=== PATIENT | female | born 1970 | race Caucasian/White ===

== ENCOUNTER 2016-07-19 18:51 | Emergency (ER) | payer OTHER ==
[~2016-07-19] VITALS: Ht 160 cm; Wt 164.6 kg
[~2016-07-19 18:51] MED LIST: CALC-721 PO; FEXO-43 PO; FLUT16SP2 NS; LEVO1TAB20 PO; LISI-571 PO; MULT-36 PO; NPR500T PO; OXYM30SP NS
[2016-07-19 18:53] VITALS: BP 149/94; PULSE 58; RESP 20; O2SAT 98
--- NOTE | 2016-07-19 19:57 | ED.REPORT ---
HPI-Back Pain 40 and Over Date of Service Jul 19, 2016 ED Provider: Cam Gruber MD A 46 year old female with a medical history including hypertension, allergic rhinitis, and abdominal hernia s/p multiple repair surgeries presents to the ED with right-sided back pain onset suddenly at 1000 this morning, while making waffles. The pain is "stabbing" in nature, localized just inferior to her rib cage, and exacerbated with movement and palpation. Associated symptoms include SOB and pleuritic pain. The patient denies fever, chills, cough, numbness, tingling, weakness, incontinence, or other symptoms. She has been taking daily estradiol since her hysterectomy more than a year ago. The patient denies recent prolonged inactivity or recent surgeries. She was seen by her PCP four days ago with left-sided facial pain and was placed on amoxicillin for a sinus infection, with mild relief. Nursing Notes Stated Complaint: SEVERE BACK SPASM INSIDE RT RIBS Chief Complaint: Back Pain or Injury Nursing Notes Reviewed: Yes Allergies: Coded Allergies: nitrofurantoin (Unverified Allergy, Severe, HIVES, 08/31/14) Scheduled Calcium Carbonate/Vitamin D3 (Calcium 500 + D Tablet) 1 Each Tablet 1 EACH PO DAILY Fexofenadine (Aller-Fex) 180 Mg Tablet 180 MG PO DAILY Fluticasone Propionate (Flonase Nasal) 16 Gm Edmond.susp 1 SPRAY NS DAILY Levonorgestrel/Ethinyl Estradiol (Sronyx) 1 Each Tablet 1 EACH PO DAILY Lisinopril (Lisinopril) 5 Mg Tablet 5 MG PO DAILY Multivitamin (Daily Multiple Vitamin) 1 Each Tablet 1 EACH PO DAILY Oxymetazoline HCl (Afrin) 30 Ml Edmond 1-2 SPRAY NS BID Maxium 3 day use. Scheduled PRN Cyclobenzaprine (Cyclobenzaprine) 5 Mg Tablet 5 MG PO HS PRN PRN Spasm Naproxen (Naproxen) 500 Mg Tab 500-1,000 MG PO BID PRN PRN For Pain General Time Seen by MD: 19:47 Chief Complaint Back pain Hx Obtained From: Patient Arrived By: Walk-in Sudden in Onset?: Yes Onset Occurred: 9 - 12 hours ago Symptom Duration: Since onset Caused by: Spontaneous/no mechanism Location: : Perispinal thoracic Quality: Painful, Stabbing Severity: Current: Moderate Severity: Maximum: Moderate Pertinent Negative: Relieved by nothing Recent Healthcare: Recent doctor visit Past Medical History Past Medical History Hypertension Abdominal hernia s/p multiple surgeries Tinea corporis Depression Allergic rhinitis Past Surgical History Multiple hernia surgeries Reports: , Hysterectomy Smoking History Never Smoker Social History Alcohol Use: "Social" Drug Use: Denies drug use Other Social History: Good social support, Occupation , lives with and 2 kids Ambulatory Status Independent Review of Systems Review of Systems Note: - Tingling Constitutional: Denies: Chills, Fever Respiratory: Reports: Pleuritic pain, Shortness of breath, Denies: Non-productive cough Female: Denies: Incontinence Musculoskeletal: Reports: Back pain (Right-sided) Neurologic: Denies: Bladder dysfunction, Bowel dysfunction, Numbness, Weakness Complete sys rev & neg: except as marked. Physical Exam Initial Vital Signs Vital Signs (First) Date Time Temp Pulse Resp B/P Pulse Ox O2 Delivery O2 Flow Rate FiO2 07/19/16 18:53 36.4 58 20 149/94 98 Room Air Initial VS: Reviewed Head / Eyes: Atraumatic, Normocephalic ENT: Conjunctiva normal, No scleral icterus Skin: Warm, Dry, No cyanosis Psychiatric: Mood/affect normal, Behavior normal, Normal thought content General/Constitutional: Awake, Alert Respiratory / Chest: Breath sounds NL, Breath sounds = bilat, No respiratory distress No anterior chest wall tenderness Cardiovascular: Heart rate NL, Regular rhythm, Heart sounds NL, No gallop, No murmurs, No rubs, Peripheral circulation NL (Good distal pulses) Abdomen: Soft, Non-tender, No distention Back: No midline vertebral tend Tenderness about right inferior and lateral chest wall without rash Neurologic: Oriented X3, Speech NL Lower Extremity / Pelvis / MS: No swelling, Non-tender Interpretation & Diagnostics Lab Results Interpretation Result Diagram: 07/19/16213907/19/162139 Test 07/19/16 19:52 07/19/16 19:56 07/19/16 21:40 Hold Urine Received (Received) Urine Color Yellow (YELLOW) Urine Appearance Clear (CLEAR,HAZY) Urine pH 5.5 (5.0-8.0) Urine Specific Cornell 1.030 (1.003-1.035) Urine Protein Negativemg/dL (NEG,TRACE) Urine Glucose (UA) Negativemg/dL (NEGATIVE) Urine Ketones Negativemg/dL (NEGATIVE) Urine Occult Blood Negative (NEGATIVE) Urine Nitrite Negative (NEGATIVE) Urine Bilirubin Negative (NEGATIVE) Urine Urobilinogen Normalmg/dL (NORMAL) Urine Leukocyte Esterase Negative (NEGATIVE) Urine RBC 0-2/hpf (0-2) Urine WBC 0-5/hpf (0-5) Urine Epithelial Cells Few/hpf (NONE-MOD) Urine Crystals None seen (NONE SEEN) Urine Bacteria Few/hpf (NONE-FEW) Urine Hyaline Casts None/lpf (NONE) Urine Granular Casts None seen (NONE SEEN) Urine Waxy Casts None seen (NONE SEEN) Urine Red Blood Cell Casts None seen (NONE SEEN) Urine White Blood Cell Casts None seen (NONE SEEN) Urine Mucus None seen (None Seen) Urine Trichomonas None seen (NONE SEEN) Urine Yeast None (NONE SEEN) Urinalysis Comment None Urine Culture Reflexed Not indicated White Blood Count 10.8th/mm3 (3.8-10.1) Red Blood Count 4.50mil/mm3 (3.90-5.20) Hemoglobin 12.6g/dL (12.0-15.6) Hematocrit 38.5% (35.0-46.0) Mean Corpuscular Volume 85.6fL (81-100) Mean Corpuscular Hemoglobin 28.0pg (27.0-35.0) Mean Corpuscular Hemoglobin Concent 32.7% (32.0-37.0) Red Cell Distribution Width 13.1% (12.3-15.4) Platelet Count 348bil/L (150-400) Neutrophils (%) (Auto) 58.6% (40-74) Lymphocytes (%) (Auto) 31.4% (14-46) Monocytes (%) (Auto) 6.1% (4-12) Eosinophils (%) (Auto) 3.4% (0-5) Basophils (%) (Auto) 0.2% (0-3) Prothrombin Time 9.4sec (8.1-12.5) Prothromb Time International Ratio 0.88ratio Sodium Level 141mEq/L (134-144) Potassium Level 4.1mEq/L (3.5-5.2) Chloride Level 104mEq/L (97-108) Carbon Dioxide Level 22mmol/L (18-29) Blood Urea Nitrogen 17mg/dL (6-24) Creatinine 0.71mg/dL (0.57-1.00) Estimat Glomerular Filtration Rate 128mL/min (>59) Glucose Level 86mg/dL (60-99) Calcium Level 9.6mg/dL (8.5-10.1) Magnesium Level 2.0mg/dL (1.6-2.6) Total Bilirubin 0.3mg/dL (0.0-1.2) Aspartate Amino Transf (AST/SGOT) 20U/L (0-50) Alanine Aminotransferase (ALT/SGPT) 26U/L (0-32) Alkaline Phosphatase 85U/L (25-150) Troponin T < 0.010ug/L (0.0-0.011) Total Protein 7.4g/dL (6.4-8.4) Albumin 4.1g/dL (3.4-5.0) Hold Park Top Tube Received (Received) ECG Interpretation ECG Interpretation: Sinus rhythm rate 81 Multiple PVCs Normal axis Normal intervals No ST segment changes No T-wave abnormalities No prior available for comparison Time: 21:19 Interpreted by: ED physician CT Chest Interpretation CONCLUSION: No evidence of pulmonary emboli or dissection. Transmitted to ED by radiologist Dr. Leonel Rodriguez M.D at 07/19/16 - 11:30:48 PM PDT Study type: CT pulm angiogram Interpretation / Wet Read by: Interpret - Radiologist Re-Eval/Medical Decision Med Decision/Clinical Course A 46 year old female with a medical history including hypertension, allergic rhinitis, and abdominal hernia s/p multiple repair surgeries presents to the ED with right-sided back pain onset suddenly at 1000 this morning, while making waffles. The pain is "stabbing" in nature, localized just inferior to her rib cage, and exacerbated with movement and palpation. Associated symptoms include SOB and pleuritic pain. The patient denies fever, chills, cough, numbness, tingling, weakness, incontinence, or other symptoms. She has been taking daily estradiol since her hysterectomy more than a year ago. The patient denies recent prolonged inactivity or recent surgeries. She was seen by her PCP four days ago with left-sided facial pain and was placed on amoxicillin for a sinus infection, with mild relief. Here in the emergency department the patient is afebrile stable vital signs and examination as above. URINE : Negative UA: No signs of UTI, no blood CBC unremarkable CMP unremarkable Troponin unremarkable ECG 2119 Sinus rhythm rate 81 Multiple PVCs Normal axis Normal intervals No ST segment changes No T-wave abnormalities No prior available for comparison Chest CT: CONCLUSION: No evidence of pulmonary emboli or dissection. Transmitted to ED by radiologist Dr. Leonel Rodriguez M.D at 07/19/16 - 11:30:48 PM PDT Overall presentation is somewhat suggestive of acute pulmonary embolism. Given that the patient is on exogenous estrogen I opted to obtain a CT angiogram of her chest which demonstrated no evidence of PE or aortic dissection. There is no evidence of bacterial pneumonia or pneumothorax. Her chest pain is reproducible palpation suggestive of musculoskeletal etiology. Here in the emergency department during comfortable in no apparent distress. History and risk factors are not suggestive of acute coronary syndrome and initial EKG and troponin are negative. Given the patient's negative workup thus far I feel that she is appropriate for discharge home. Throughout the duration of her emergency department visit she was treated with IV fluids, Zofran for nausea and morphine for pain. She reported significant subjective improvement. I will prescribe a small dose of Flexeril for musculoskeletal chest wall pain and she is advised to apply ice packs and hot packs. She will follow up with her primary care doctor.Prior to discharge follow-up and return precautions were reviewed in detail with the patient who verbalized understanding and agreement with the plan. The patient was discharged in stable condition. Re-Evaluation/Progress : Time of Eval: 23:47 Patient Status: Condition improved Re-Evaluation/Progress Note: Patient's pain has improved. Discussed with patient CT and lab results, diagnosis, and plan for discharge. Follow-up and return to the ER instructions given. Patient agrees with plan for care and all questions were addressed. Counseled Regarding: Diagnosis, Lab results, Need for follow-up, When/why to return to ED Discharge & Departure Impression: Primary Impression: Musculoskeletal chest pain Additional Impressions: H/O estrogen therapy Pleuritic chest pain Chest wall tenderness Shortness of breath Disposition: Home Discharge Condition All VS Reviewed: Yes Condition: Improved Additional Instructions: Thank you for seeking care at the emergency room. It is difficult for us to make definitive diagnoses in the ED but we believe that you are experiencing muscle pain. Our primary goal today in the ED was to evaluate you for any life-threatening conditions. Your evaluation was reassuring. You will be discharged with a prescription for ibuprofen and Flexeril. Do not drive or take other pain medication while taking the Flexeril. You should follow-up with your primary doctor in the next week. You should return to the ED immediately if you develop worsening symptoms, fevers, vomiting, cough, shortness of breath, chest pain, lightheadedness, weakness or any other concerning signs or symptoms. Thank you for letting us partake in your care today. Referrals: Peyton Rod (PCP) Gus Attestation Portions of this note were transcribed by Nina Padgett. I, Dr. Gruber, personally performed the history, physical exam, and medical decision-making; I reviewed and confirmed the accuracy of the information in the transcribed note. Signed by: Gus Quezada, 07/19/2016, 23:59 copies to: Peyton Rod Beck O MD Jul 19, 2016 19:57 NINA PADGETT Jul 19, 2016 21:06
[2016-07-19 20:09] LABS: APPEARANCE,URINE CLEAR (CLEAR,HAZY); COLOR,URINE YELLOW (YELLOW); OCCULT BLOOD,URINE NEGATIVE (NEGATIVE); PH,URINE 5.5 (5.0-8.0); UROBILINOGEN,URINE NORMAL (NORMAL)
[2016-07-19] MEDS ORDERED: 0.9% Sodium Chloride 1,000 ML IV ONE (21:06)
[2016-07-19] MEDS ORDERED: Ondansetron 2 mg/mL 2 mL Inj IVPUSH ONE (21:10)
[2016-07-19 21:52] LABS: BASOPHILS % (AUTO) 0.2 % (0-3); EOSINOPHILS % (AUTO) 3.4 % (0-5); MONOCYTES % (AUTO) 6.1 % (4-12); Mean Corpuscular Volume 85.6 fL (81-100); NEUTROPHILS % (AUTO) 58.6 % (40-74); Platelet Count 348 bil/L (150-400)
[2016-07-19 22:03] LABS: INR 0.88 ratio
[2016-07-19 22:13] LABS: TROPONIN T < 0.010 ug/L (0.0-0.011)
[2016-07-19] MEDS ORDERED: CYCL5TAB PO (23:44)
[2016-07-20 00:01] VITALS: BP 146/82; PULSE 84; RESP 18; O2SAT 96
--- NOTE | 2016-07-20 13:41 | DRSVH ---
PROCEDURE: CT ANGIO CHEST PULMONARY EMBOLISM ([id number]) INDICATIONS: cp, pleuritic, on estrogen TECHNIQUE: After the administration of intravenous contrast, 2 mm thick sections acquired from the pulmonary api ubaldo to the posterior costophrenic angles. 3-dimensional maximum intensity projection (MIP) coronal a nd sagittal reformats were then acquired through the thorax. For radiation dose reduction, the follo wing was used: automated exposure control, adjustment of mA and/or kV according to patient size. COMPARISON: None. FINDINGS: Image quality: Excellent. Pulmonary arteries: Pulmonary arteries are normal in size, and demonstrate no intraluminal filling d efects to suggest central pulmonary embolism. Lungs and pleura: Lungs are clear. No pleural effusions or pneumothorax. Central and peripheral ai rways are patent. Mediastinum: Heart size is normal, without pericardial effusion. No mediastinal or hilar adenopathy . Thoracic aorta is normal in caliber and enhancement. Esophagus is normal in caliber, without hiat al hernia. Bones and chest wall: No suspicious bony lesions. Ribs and thoracic spine appear intact throughout. Thyroid gland is unremarkable. No axillary or supraclavicular adenopathy. Abdomen: Hepatic steatosis is present. Otherwise, visualized upper abdominal solid organs appear no rmal in the early arterial phase of enhancement. IMPRESSION: 1. No evidence of pulmonary embolism. Lungs are clear. Dictated by: Katelyn Patel M.D. on 07/20/2016 at 13:38 Approved by: Katelyn Patel M.D. on 07/20/2016 at 13:39
== END 2016-07-20 00:02 | disposition home or self-care (01) ==
LOC: SED 18:51
DX: R07.81 Pleurodynia (principal); I10 Essential (primary) hypertension; Z79.818 Long term (current) use of other agents affecting estrogen receptors and estrogen levels; Z88.8 Allergy status to other drugs, medicaments and biological substances
CPT/HCPCS: 71275; 80053; 81000; 81025; 83735; 84484; 85025; 85610; 93005; 96361; 96374; 96375; 99285; J2270; J2405; J7030; Q9967